=== PATIENT | female | born 1965 | race Caucasian/White ===

== ENCOUNTER 2017-06-23 18:38 | Observation (INO) | payer MEDICAID ==
[2017-06-23] MEDS ORDERED: ASPIRIN 81 MG PO STA (19:16)
[2017-06-23] MEDS ORDERED: RX INFO: IV CONTRAST WAS GIVEN 1 EACH MISC MISCELLANE PRN (19:17)
--- NOTE | 2017-06-23 19:23 | ED ---
Chest Pain HPI - General Chief Complaint: Chest Pain Stated Complaint: pressure in chest going though the back Time Seen by Provider: 06/23/17 19:16 Source: patient, RN notes reviewed Mode of arrival: wheelchair Limitations: no limitations - History of Present Illness Initial Comments: 51-year-old female presents emergency Department with chief complaint of chest pain, back pain. She states the symptoms have been present for last week or not getting better states slightly worse. She states that she initially thought it was just anxiety but she took some Xanax with no relief. Patient states she had a stress test proximal 6 years ago because she was having ongoing chest pain which shows normal at that time. At that point they determined that she had anxiety. Patient denies history of hypertension, hyperlipidemia, or diabetes. Patient is a nonsmoker. Patient states nothing makes symptoms feel better or worse. Denies any associated diaphoretic episodes , paresthesias, nausea, vomiting. - Related Data Home Medications Medication Instructions Recorded Confirmed Rizatriptan Benzoate [Maxalt] 10 mg PO DAILY PRN 05/03/14 06/23/17 Butalb/APAP/Caff 50-325-40Mg 1 tab PO DAILY PRN 12/01/14 06/23/17 [Fioricet 50-325-40] ALPRAZolam [Xanax] 0.25 mg PO DAILY PRN 06/23/17 06/23/17 Cyanocobalamin [Vitamin B-12 1,000 mcg SQ WE 06/23/17 06/23/17 Injection] Ergocalciferol [Vitamin D2] 50,000 unit PO WE 06/23/17 06/23/17 Pantoprazole Sodium [Protonix] 40 mg PO DAILY 06/23/17 06/23/17 Allergies Allergy/AdvReac Type Severity Reaction Status Date / Time No Known Allergies Allergy Verified 06/23/17 19:42 Review of Systems ROS Statement: Those systems with pertinent positive or pertinent negative responses have been documented in the HPI. ROS Other: All systems not noted in ROS Statement are negative. EKG Findings - EKG Comments: EKG Findings:: EKG performed at 18:57 sinus bradycardia with a rate of 59 MS 132 QRS 78 QT/QTC 432/427 Past Medical History Past Medical History: GERD/Reflux Additional Past Medical History / Comment(s): MIGRAINES.HEART MURMUR History of Any Multi-Drug Resistant Organisms: None Reported Past Surgical History: Hysterectomy Additional Past Surgical History / Comment(s): GASTRIC BYPASS Past Anesthesia/Blood Transfusion Reactions: No Reported Reaction Past Psychological History: Anxiety Smoking Status: Never smoker Past Alcohol Use History: None Reported Past Drug Use History: None Reported General Exam Limitations: no limitations General appearance: alert, in no apparent distress Head exam: Present: atraumatic, normocephalic, normal inspection Eye exam: Present: normal appearance, PERRL, EOMI. Absent: scleral icterus, conjunctival injection, periorbital swelling ENT exam: Present: normal exam, normal oropharynx, mucous membranes moist Neck exam: Present: normal inspection, full ROM. Absent: tenderness, meningismus, lymphadenopathy Respiratory exam: Present: normal lung sounds bilaterally. Absent: respiratory distress, wheezes, rales, rhonchi, stridor Cardiovascular Exam: Present: regular rate, normal rhythm, normal heart sounds. Absent: systolic murmur, diastolic murmur, rubs, gallop, clicks GI/Abdominal exam: Present: soft, normal bowel sounds. Absent: distended, tenderness, guarding, rebound, rigid Neurological exam: Present: alert, oriented X3, CN II-XII intact. Absent: motor sensory deficit Course Vital Signs 06/23/17 18:46 Temperature 98.0 F Pulse Rate 69 Respiratory 20 Rate Blood Pressure 142/78 O2 Sat by Pulse 99 Oximetry Disposition Clinical Impression: Chest pain, Back pain Disposition: ADMITTED IP TO THIS HOSP Condition: Stable Referrals: Zak Daniels DO [Primary Care Provider] - 1-2 days
[2017-06-23 19:42] LABS: Basophils # (A) 0.1 k/uL (0-0.2); Basophils % (A) 1 %; Eosinophils # (A) 0.1 k/uL (0-0.7); Eosinophils % (A) 2 %; HCT 35.6 % (34.0-46.0); HGB 11.7 gm/dL (11.4-16.0); Lymphocytes # (A) 3.2 k/uL (1.0-4.8); Lymphocytes % (A) 43 %; MCHC 32.9 g/dL (31.0-37.0); MCV 88.2 fL (80.0-100.0); Mean Platelet Volume 6.9; Monocytes # (A) 0.5 k/uL (0-1.0); Monocytes % (A) 7 %; Neutrophils # (A) 3.4 k/uL (1.3-7.7); Neutrophils % (A) 45 %; Platelet Count 267 k/uL (150-450); RBC 4.04 m/uL (3.80-5.40); RDW 12.7 % (11.5-15.5); WBC 7.5 k/uL (3.8-10.6)
[2017-06-23 19:46] LABS: Partial Thromboplastin Time 23.6 sec (22.0-30.0); Prothrombin Time 9.7 sec (9.0-12.0)
[2017-06-23 19:52] LABS: ALT 30 U/L (9-52); AST 21 U/L (14-36); Alkaline Phosphatase 75 U/L (38-126); Anion Gap 9 mmol/L; Blood Urea Nitrogen 10 mg/dL (7-17); Calcium 9.1 mg/dL (8.4-10.2); Carbon Dioxide 27 mmol/L (22-30); Chloride 102 mmol/L (98-107); Creatine Kinase 92 U/L (30-135); Glucose 95 mg/dL (74-99); Lipase 103 U/L (23-300); Magnesium 2.1 mg/dL (1.6-2.3); Potassium 4.4 mmol/L (3.5-5.1); Sodium 138 mmol/L (137-145); Total Bilirubin 0.2 mg/dL (0.2-1.3); Total Protein 6.7 g/dL (6.3-8.2)
[2017-06-23 20:04] LABS: Creatine Kinase MB 0.4 ng/mL (0.0-2.4); Troponin I <0.012 ng/mL (0.000-0.034)
--- NOTE | 2017-06-23 20:05 | XR ---
EXAMINATION: XR chest 2V DATE AND TIME: 06/23/2017 7:34 PM ORDERING PROVIDER: Zak Sandoval CLINICAL INDICATION: Chest Pain TECHNIQUE: PA and lateral COMPARISON: None. DESCRIPTION: The lungs are clear. The pleural spaces are negative. The cardiac silhouette is not enlarged. The mediastinal and pleural silhouettes are unremarkable. The skeletal structures are intact without focal findings. The soft tissues are unremarkable. IMPRESSION: NO ACUTE PROCESS.
--- NOTE | 2017-06-23 21:41 | CT ---
EXAMINATION TYPE: CT angio chest with contrast and with 3-D renderings DATE OF EXAM: 06/23/2017 8:38 PM COMPARISON: NONE HISTORY: Chest pressure CT DLP: 406.2 mGycm Automated exposure control for dose reduction was used. DLP 406 mGy-cm CONTRAST: CTA scan of the thorax is performed with IV Contrast, patient injected with 70 mL of Omnipa que 350, pulmonary embolism protocol. Multiple 3-D renderings were obtained.. FINDINGS: LUNGS: The lungs are grossly clear, there is no concerning parenchymal mass or nodule identified. T here is no pleural effusion or pneumothorax seen. The tracheobronchial tree is patent. MEDIASTINUM: There is satisfactory enhancement of the pulmonary artery and its branches, there is no CT evidence for pulmonary embolism. There are no greater than 1 cm hilar or mediastinal lymph nodes. There is no cardiomegaly. No pericardial effusion is seen. OTHER: No additional significant abnormality is seen. IMPRESSION: NO ACUTE PROCESS.
[2017-06-23] MEDS ORDERED: HEPARIN SODIUM,PORCINE 5,000 UNIT/ML 1 ML VIAL IV ONE (21:52)
[2017-06-23] MEDS ORDERED: NITROGLYCERIN SL TABS 0.4 MG TAB SUBLINGUAL PRN (21:52)
[2017-06-23] MEDS ORDERED: HEPARIN SOD,PORK IN 0.45% NACL 25,000 UNIT in 0.45% NACL 1 500ML.BAG IV SCH (22:00)
[2017-06-23 22:57] VITALS: BMI 29.7
[2017-06-24] MEDS ORDERED: BUTALB/APAP/CAFF 50-325-40MG TAB PO PRN (00:42)
[2017-06-24] MEDS ORDERED: SUMAtriptan SUCCINATE 50 MG TAB PO PRN (00:42)
[2017-06-24] MEDS ORDERED: ALPRAZolam 0.25 MG TAB PO PRN (00:42)
[2017-06-24] MEDS ORDERED: ERGOCALCIFEROL 50,000 UNIT CAP PO SCH ×2 (00:45→09:00)
[2017-06-24 02:07] LABS: Creatine Kinase 84 U/L (30-135)
[2017-06-24 02:21] LABS: Creatine Kinase MB 0.4 ng/mL (0.0-2.4); Troponin I <0.012 ng/mL (0.000-0.034)
--- NOTE | 2017-06-24 03:48 | HP ---
HISTORY AND PHYSICAL CHIEF COMPLAINT: Chest pain. HISTORY OF PRESENT ILLNESS: This 51-year-old woman with a past medical history of multiple medical problems including GERD, migraine, history of cholecystectomy, history of gastric bypass, being followed by Dr. Daniels in the outpatient setting, was complaining of chest pains for the last 1 week. The patient had a pressure type of sensation in the anterior part of the chest, which was not going away and the pain was radiated to the back today and the patient was concerned and the patient came to [facility] and was admitted for further evaluation and treatment. The patient had some anxiety attack also. The patient took some Xanax, but no relief was noted. The patient apparently had a stress test about 6 years ago which was normal at that time. No results available at this time. The patient also reports significant stress also. There is no history of fever, rigors. No history of headache, loss consciousness or seizures at this time. PAST MEDICAL HISTORY: History of GERD, history of migraines, cholecystectomy, tonsillectomy, history of anxiety, history gastric bypass. MEDICATIONS: Prior to admission include home medications are: 1. Maxalt 10 mg daily p.r.n. 2. Fioricet 1 tab daily p.r.n. 3. Xanax 0.5 daily p.r.n. 4. Protonix 40 mg. 5. D2 50,000 p.o. 6. Vitamin B12 1000 mcg subcu Thursday. ALLERGIES: None. FAMILY HISTORY: History of coronary artery disease in the family. SOCIAL HISTORY: No history of smoking. No history of alcohol intake. REVIEW OF SYSTEMS: ENT: No diminished hearing or vision. CARDIOVASCULAR: As mentioned. Respiration: As mentioned earlier. GI no nausea. no dysuria. Central nervous system: No numbness or weakness. ALLERGY/IMMUNOLOGY: No asthma or hayfever. Musculoskeletal: As mentioned earlier. HEMATOLOGY/ONCOLOGY: No history of anemia. Endocrine: No history of diabetes or hypothyroidism. Constitutional: As mentioned earlier. Dermatology negative. Rheumatology negative. Psychiatric: As mentioned earlier. PHYSICAL EXAMINATION: Pulse 91, blood pressure is 120/70, respiration 15, temperature 98.2, pulse ox 91% on room air. HEENT is conjunctivae normal. Oral mucosa moist. Neck is no jugular venous distention. No carotid bruit. No lymph node enlargement. Cardiovascular: S1, S2. Respiratory: Breath sounds diminished in the bases. No rhonchi. No crackles. ABDOMEN: Soft, nontender. No mass palpable. Legs no edema and no swelling. NERVOUS SYSTEM: Higher functions as mentioned earlier. Moves all four limbs. No focal deficits. Lymphatics: No lymph nodes palpable in the neck, axillae or groin. Skin no ulcer, rash or bleeding. LABS: CBC BMP within normal limits and the EKG which was done in the ER showed sinus bradycardia at [address]-T changes. ASSESSMENT: 1. Chest pain possible unstable angina. 2. History of gastroesophageal reflux disease. 3. History of migraine. 4. History of cholecystectomy. 5. History of gastric bypass. 6. History of anxiety. RECOMMENDATIONS AND DISCUSSION: In this 51-year-old woman who presented with multiple complex medical issues, we will monitor the patient closely, continue the current management. Continue symptomatic treatment. I would recommend resume the home medications. I would also recommend unstable angina protocol. Cardiology consultation. Otherwise, we will continue to monitor. I would also recommend resume the home medications and I would also recommend repeat labs and as well as a D-dimer also. We will monitor more closely monitor with Cardiology. Guarded prognosis because of multiple complex medical issues. Further recommendations to follow. Copy of dictation being forwarded to Dr. Daniels who is the primary physician. GILSON / BO: [id number] /
[2017-06-24] MEDS ORDERED: PANTOPRAZOLE 40 MG TABLET PO SCH (07:30)
[2017-06-24 08:16] LABS: Creatine Kinase 77 U/L (30-135)
[2017-06-24 08:21] LABS: Cholesterol 164 mg/dL (<200); HDL Cholesterol 69 mg/dL (40-60); LDL Cholesterol,Calculated 85 mg/dL (0-99); Triglycerides 49 mg/dL (<150)
[2017-06-24 08:22] VITALS: RESP 18
[2017-06-24 08:28] LABS: Creatine Kinase MB 0.3 ng/mL (0.0-2.4); Troponin I <0.012 ng/mL (0.000-0.034)
[2017-06-24] MEDS ORDERED: ASPIRIN 325 MG TAB PO SCH (09:00)
--- NOTE | 2017-06-24 11:09 | P.CRDCN ---
History of Present Illness Consult date: 06/24/17 History of present illness: This is a 51-year-old female with history of GERD syndrome, migraine and also of previous gastric bypass surgery who comes here for evaluation of symptoms of chest tightness and anxiety. She claims that she usually and anxious portion and has intermittent anxiety episodes. However, over the last several days patient has been having this tightness across the chest going to the back. It feels like anxiety, but she was not sure. Denied any nausea, vomiting, sweating. Doesn't seem to be exertional in nature. EKGs are negative and cardiac enzymes are negative. Her symptoms appear to be atypical. She is being scheduled for stress echo. If that is negative patient could be discharged home Past Medical History Past Medical History: GERD/Reflux Additional Past Medical History / Comment(s): MIGRAINES.HEART MURMUR History of Any Multi-Drug Resistant Organisms: None Reported Past Surgical History: Cholecystectomy, Hysterectomy, Tonsillectomy Additional Past Surgical History / Comment(s): GASTRIC BYPASS Past Anesthesia/Blood Transfusion Reactions: No Reported Reaction Past Psychological History: Anxiety Smoking Status: Never smoker Past Alcohol Use History: None Reported Past Drug Use History: None Reported - Past Family History Father Family Medical History: Coronary Artery Disease (CAD) Mother Family Medical History: Coronary Artery Disease (CAD) Additional Family Medical History / Comment(s): passed at 71 Medications and Allergies Home Medications Medication Instructions Recorded Confirmed Type Rizatriptan Benzoate [Maxalt] 10 mg PO DAILY PRN 05/03/14 06/23/17 History Butalb/APAP/Caff 50-325-40Mg 1 tab PO DAILY PRN 12/01/14 06/23/17 History [Fioricet 50-325-40] ALPRAZolam [Xanax] 0.25 mg PO DAILY PRN 06/23/17 06/23/17 History Cyanocobalamin [Vitamin B-12 1,000 mcg SQ WE 06/23/17 06/23/17 History Injection] Ergocalciferol [Vitamin D2] 50,000 unit PO WE 06/23/17 06/23/17 History Pantoprazole Sodium [Protonix] 40 mg PO DAILY 06/23/17 06/23/17 History Allergies Allergy/AdvReac Type Severity Reaction Status Date / Time No Known Allergies Allergy Verified 06/23/17 19:42 Physical Exam Vitals: Vital Signs Temp Pulse Pulse Resp BP BP Pulse Ox 06/24/17 08:00 97.9 F 66 18 105/59 99 06/24/17 04:00 97.9 F 58 L 17 119/69 96 06/24/17 00:03 98.2 F 91 15 127/73 91 L 06/23/17 23:10 81 16 06/23/17 22:43 97.6 F 76 16 139/78 97 06/23/17 21:57 97.9 F 66 16 114/83 96 06/23/17 18:46 98.0 F 69 20 142/78 99 Intake and Output 06/23/17 06/24/17 06/24/17 22:59 06:59 14:59 Intake Total 126.937 Balance 126.937 Intake: Intake, IV Titration 126.937 Amount Heparin Sod,Pork in 0.45% 126.937 NaCl 25,000 unit In 0.45 % NaCl 1 500ml.bag @ 11.6 UNITS/KG/HR 19.99 mls/hr IV .Q24H [facility] Rx#: [id number] Other: Voiding Method Toilet Toilet # Voids 1 2 Weight 89.8 kg 89.8 kg GENERAL EXAM: Patient is alert and oriented and doesn't appear to be in any acute distress HEENT: Normocephalic. Normal reaction of pupils, equal size, normal range of extraocular motion. No erythema or exudates in the throat. NECK: No masses, no nuchal rigidity. CHEST: No chest wall deformity. LUNGS: Equal air entry with no crackles or wheeze. HEART: S1 and S2 normal with no audible mumurs or gallops. Regular rhythm, femorals equal on both sides.. ABDOMEN: No hepatosplenomegaly, normal bowel sounds, no guarding or rigidity. SKIN: No rashes CENTRAL NERVOUS SYSTEM: No focal deficits. EXTREMITIES: No cyanosis, clubbing or edema. Results 06/23/17 19:26 06/23/17 19:26 Cardiac Enzymes 06/23/17 06/23/17 06/24/17 Range/Units 19:26 19:26 01:02 AST 21 (14-36) U/L CK-MB (CK-2) 0.4 0.4 (0.0-2.4) ng/mL Troponin I <0.012 <0.012 (0.000-0.034) ng/mL 06/24/17 Range/Units 07:00 AST (14-36) U/L CK-MB (CK-2) 0.3 (0.0-2.4) ng/mL Troponin I <0.012 (0.000-0.034) ng/mL Coagulation 06/23/17 06/24/17 Range/Units 19:26 03:29 PT 9.7 (9.0-12.0) sec APTT 23.6 36.9 H (22.0-30.0) sec Lipids 06/24/17 Range/Units 07:00 Triglycerides 49 (<150) mg/dL Cholesterol 164 (<200) mg/dL HDL Cholesterol 69 H (40-60) mg/dL CBC 06/23/17 Range/Units 19:26 WBC 7.5 (3.8-10.6) k/uL RBC 4.04 (3.80-5.40) m/uL Hgb 11.7 (11.4-16.0) gm/dL Hct 35.6 (34.0-46.0) % Plt Count 267 (150-450) k/uL Comprehensive Metabolic Panel 06/23/17 Range/Units 19:26 Sodium 138 (137-145) mmol/L Potassium 4.4 (3.5-5.1) mmol/L Chloride 102 (98-107) mmol/L Carbon Dioxide 27 (22-30) mmol/L BUN 10 (7-17) mg/dL Creatinine 0.64 (0.52-1.04) mg/dL Glucose 95 (74-99) mg/dL Calcium 9.1 (8.4-10.2) mg/dL AST 21 (14-36) U/L ALT 30 (9-52) U/L Alkaline Phosphatase 75 (38-126) U/L Total Protein 6.7 (6.3-8.2) g/dL Albumin 4.0 (3.5-5.0) g/dL Current Medications Generic Name Dose Route Start Last Admin Trade Name Freq PRN Reason Stop Dose Admin Acetaminophen/Butalbital/Caffeine 1 each 06/24/17 00:42 Fioricet 50-325-40 PO DAILY PRN Headache Alprazolam 0.25 mg 06/24/17 00:42 Xanax PO DAILY PRN Anxiety Aspirin 325 mg 06/24/17 09:00 Aspirin PO DAILY [facility] Ergocalciferol 50,000 unit 06/24/17 09:00 Vitamin D2 PO We@0900 [facility] Heparin Sodium/Sodium Chloride 500 mls @ 19.99 mls/hr 06/23/17 22:00 04:34 25,000 unit/ Sodium Chloride IV 13.63 units/kg/hr .Q24H [facility] 23.5 mls/hr Protocol Titration 11.6 UNITS/KG/HR Miscellaneous Information 1 each 06/23/17 19:17 06/23/17 19:39 Rx Info: Iv Contrast Was Given MISCELLANE 06/25/17 19:17 1 each DAILY PRN Administration Per Protocol Nitroglycerin 0.4 mg 06/23/17 21:52 Nitrostat SUBLINGUAL Q5M PRN Chest Pain Pantoprazole Sodium 40 mg 06/24/17 07:30 Protonix PO AC-BRKFST [facility] Sumatriptan Succinate 100 mg 06/24/17 00:42 Imitrex PO DAILY PRN Migraine Headache Intake and Output 06/23/17 06/24/17 06/24/17 22:59 06:59 14:59 Intake Total 126.937 Balance 126.937 Intake: Intake, IV Titration 126.937 Amount Heparin Sod,Pork in 0.45% 126.937 NaCl 25,000 unit In 0.45 % NaCl 1 500ml.bag @ 11.6 UNITS/KG/HR 19.99 mls/hr IV .Q24H [facility] Rx#: [id number] Other: Voiding Method Toilet Toilet # Voids 1 2 Weight 89.8 kg 89.8 kg 06/23/17 19:26 06/23/17 19:26 EKG Interpretations (text) Sinus rhythm Assessment and Plan (1) Anxiety Current Visit: Yes Status: Acute Code(s): F41.9 - ANXIETY DISORDER, UNSPECIFIED SNOMED Code(s): 00699563 (2) Chest pain Current Visit: Yes Status: Acute Code(s): R07.9 - CHEST PAIN, UNSPECIFIED SNOMED Code(s): 32231813 Plan: Procedure with a stress echo. If negative patient could be discharged home
[2017-06-24 11:58] VITALS: BP 119/66; PULSE 65; TEMP 98
--- NOTE | 2017-06-24 15:43 | P.STRESS ---
- Stress Test Note Stress Test Results/Findings: Exam Performed: stress echo exercise Exam Date: 06/24/17 Reason for Exam: chest pain Height: 5 ft 7 in Weight: 89.8 kg Protocol: vickey Stage: 3 Duration of Exercise: 9:00 Resting Heart Rate: 85 Resting Blood Pressure: 145/58 Maximum Achieved Heart Rate: 158 Maximum Achieved Blood Pressure: 160/79 85% PMHR: 142 100% PMHR: 167 METS: 10.3 Technologist Comment: Stress Test Results/Findings: This is a 51-year-old female being evaluated for symptoms chest pain and shortness of breath. There is family history of ischemic heart disease. Baseline EKG showed sinus rhythm with normal RI interval and QRS duration. Patient walked on the Vickey protocol for 9 minutes achieving a maximum heart rate of 158 with a blood pressure 116/79. Baseline EKG showed sinus rhythm with normal RI interval and QRS duration. EKGs taken during and after the exercise did not reveal any significant changes from the baseline. Patient did not experience any chest pain. Echo data: Baseline echo images showed normal wall motion and thickening. Exercise echo images showed augmentation of wall motion and thickening in all the segments. Final impression: #1. Negative stress test #2. Negative stress echo.
--- NOTE | 2017-06-24 17:43 | DS ---
DISCHARGE SUMMARY DATE OF SERVICE: 06/24/2017 FINAL DIAGNOSES: 1. Chest pain possibly musculoskeletal. Negative stress test myocardial infarction ruled out. 2. History of gastroesophageal reflux disease. 3. History of migraines. 4. History of cholecystectomy. 5. History of gastric bypass. 6. History of anxiety disorder. DISCHARGE DISPOSITION: The patient is being discharged in stable condition with guarded prognosis. HISTORY OF PRESENT ILLNESS: This 51-year-old with a past medical history of multiple medical problems, admitted with chest pain, myocardial infarction was ruled out and cardiology saw the patient. Stress test was negative and the patient is being discharged in stable condition with guarded prognosis. DISCHARGE ADVICE AND MEDICATIONS: 1. Diet is cardiac diet. 2. Activity limited until followup. 3. Follow up with Dr. Daniels in 2-3 days. 4. Follow up with municipal bond trader as recommend. MEDICATIONS: 1. Xanax 0.5 daily. 2. Butalbital 1 tab p.o. daily. 3. Vitamin B12 1000 mcg p.o. daily. 4. Vitamin D2 50,000. 5. Protonix 40 mg daily. 6. Maxalt 10 mg daily p.r.n. Once again, the patient is being discharged in stable condition with guarded prognosis. MMODL / IJN: [id number] /
--- NOTE | 2017-06-30 10:36 | ECHOS ---
- Stress Test Note Stress Test Results/Findings: Exam Performed: stress echo exercise Exam Date: 06/24/17 Reason for Exam: chest pain Height: 5 ft 7 in Weight: 89.8 kg Protocol: vickey Stage: 3 Duration of Exercise: 9:00 Resting Heart Rate: 85 Resting Blood Pressure: 145/58 Maximum Achieved Heart Rate: 158 Maximum Achieved Blood Pressure: 160/79 85% PMHR: 142 100% PMHR: 167 METS: 10.3 Technologist Comment: Stress Test Results/Findings: This is a 51-year-old female being evaluated for symptoms chest pain and shortness of breath. There is family history of ischemic heart disease. Baseline EKG showed sinus rhythm with normal CA interval and QRS duration. Patient walked on the Vickey protocol for 9 minutes achieving a maximum heart rate of 158 with a blood pressure 116/79. Baseline EKG showed sinus rhythm with normal CA interval and QRS duration. EKGs taken during and after the exercise did not reveal any significant changes from the baseline. Patient did not experience any chest pain. Echo data: Baseline echo images showed normal wall motion and thickening. Exercise echo images showed augmentation of wall motion and thickening in all the segments. Final impression: #1. Negative stress test #2. Negative stress echo. ALMA
== END 2017-06-24 16:58 | disposition home or self-care (01) ==
LOC: EC 18:38 → 3OBS 21:58
PROVIDERS: ADMIT Hospitalist; ATTEND Hospitalist
DX: R07.89 Other chest pain (principal); F41.9 Anxiety disorder, unspecified; G43.909 Migraine, unspecified, not intractable, without status migrainosus; K21.9 Gastro-esophageal reflux disease without esophagitis; Z98.84 Bariatric surgery status; Z90.49 Acquired absence of other specified parts of digestive tract; Z79.899 Other long term (current) drug therapy; Z86.79 Personal history of other diseases of the circulatory system; Z82.49 Family history of ischemic heart disease and other diseases of the circulatory system
CPT/HCPCS: 99285 ×2; 96365 ×2; 96376 ×2; 96366 ×2; 36415; 93005; 93017; 93350; 85379; 83880; 80061; 80053; 82550 ×2; 82553 ×2; 83690; 83735; 84484 ×2; 85025; 85610; 85730 ×2; 71046; 71275; G0378 ×2; J1644 ×2; Q9967

== ENCOUNTER → 2018-08-13 | Outpatient (CLI) | payer MEDICAID ==
--- NOTE | 2018-08-16 17:11 | BD ---
EXAMINATION TYPE: Axial Bone Density DATE OF EXAM: 08/13/2018 COMPARISON: NONE CLINICAL HISTORY: 52-year-old female disorder bone density, vitamin D deficiency Height: 65 Weight: 209.7 FRAX RISK QUESTIONS: Alcohol (3 or more units per day): no Family History (Parent hip fracture): no Glucocorticoids (More than 3mos): no (Ex: prednisone, prednisolone, methylprednisolone, dexamethasone, and hydrocortisone). History of Fracture in Adulthood: no Secondary Osteoporosis: 1. Type 1 Diabetes: no 2. Hyperthyroidism: no 3. Menopause before 45: no 4. Malnutrition: no 5. Chronic liver disease: no Rheumatoid Arthritis: no Current Tobacco Use: no RISK FACTORS HISTORY OF: Family History of Osteoporosis: no Active: yes Diet low in dairy products/other sources of calcium: no Postmenopausal woman: age 45 MEDICATIONS: vit d injections, vit d, Protonix Additional History: EXAM MEASUREMENTS: Bone mineral densitometry was performed using the [employer] System. Bone mineral density as measured about the Lumbar spine is: ----- L1-L4(G/cm2): 0.922 T Score Values are as follows: ----- L2: -2.6 ----- L3: -1.4 ----- L4: -2.3 ----- L1-L4: -2.2 Bone mineral density has: decreased -1.5 % since study of: 03.08.2014 Bone mineral density about the R hip (g/cm2): 0.732 Bone mineral density about the L hip (g/cm2): 0.770 T Score values are as follows: -----R Neck: -2.2 -----L Neck: -1.9 -----R Total: -1.2 -----L Total: -0.9 Bone mineral density has: increased 2.3 % since study of: 03.08.2014 IMPRESSION: Osteopenia (T Score between -2.5 and -1). There is slightly increased risk of fracture and the patient may be considered for treatment. Re-Screen 2-5 years. NOTE: T-SCORE=SD OF THE YOUNG ADULT MEAN.
--- NOTE | 2018-08-17 07:32 | MM ---
Reason for exam: screening (asymptomatic). Last mammogram was performed 4 years and 5 months ago. History: Patient is postmenopausal. 2 benign excisional biopsies of the right breast. Taking estrogen for 7 years. Physical Findings: A clinical breast exam by your physician is recommended on an annual basis and results should be correlated with mammographic findings. MG 3D Screening Mammo W/Cad Bilateral CC and MLO view(s) were taken. Prior study comparison: March 08, 2014, bilateral MG diagnostic mammo w CAD DEJAN. There are scattered fibroglandular densities. No suspicious abnormality. No significant changes when compared with prior studies. ASSESSMENT: Negative, BI-RAD 1 RECOMMENDATION: Routine screening mammogram of both breasts in 1 year.
== END | disposition home or self-care (01) ==
LOC: RADMAMWWP 07:06
PROVIDERS: ATTEND Family Medicine
DX: M85.80 Other specified disorders of bone density and structure, unspecified site (principal); E55.9 Vitamin D deficiency, unspecified
CPT/HCPCS: 77063; 77067; 77080

== ENCOUNTER → 2020-05-29 | Outpatient (CLI) | payer MEDICAID ==
--- NOTE | 2020-05-29 09:48 | XR ---
EXAMINATION TYPE: XR cervical spine comp DATE OF EXAM: 05/29/2020 COMPARISON: NONE HISTORY: CERVICALGIA TECHNIQUE: Four views are submitted. FINDINGS: The odontoid is intact. There are no compression deformities. The prevertebral soft tissue structur es are within normal limits. Diffuse osteopenia. Mild hypertrophic change C5-6. Well-corticated soft tissue ossification posterior to the spinous processes of the lower cervical spine. Neural foramina appear to be patent. IMPRESSION: 1. Mild hypertrophic change with degenerative disc disease C5-C6. If there is concern for disc hernia tion correlate with MRI.
== END | disposition home or self-care (01) ==
LOC: RADXRYALE 09:03
PROVIDERS: ATTEND Physician Assistant Medical
DX: M50.322 Other cervical disc degeneration at C5-C6 level (principal); M89.38 Hypertrophy of bone, other site
CPT/HCPCS: 72050

== ENCOUNTER → 2020-06-07 | Outpatient (CLI) | payer MEDICAID ==
--- NOTE | 2020-06-07 10:42 | CT ---
EXAMINATION TYPE: CT brain wo con DATE OF EXAM: 06/07/2020 COMPARISON: None HISTORY: Headache CT DLP: 995.[address] of the brain was performed. The ventricles, basal cisterns and sulci overlying the cerebral convexities demonstrate mild enlargem ent. There is no evidence for intracranial hemorrhage or sulcal effacement. There is decreased attenuation about the periventricular white matter and deep white matter of both c erebral hemispheres, compatible with chronic small vessel ischemia. Differential diagnosis does inclu de demyelination. No mass effects are seen.No midline shift. Osseous calvarium is intact. If symptoms persist consider MRI. IMPRESSION: 1. Age related atrophic and chronic small vessel ischemic change without acute intracranial process s een at this time.
== END | disposition home or self-care (01) ==
LOC: RADCTMAIN 09:56
PROVIDERS: ATTEND Physician Assistant Medical
DX: I67.82 Cerebral ischemia (principal); G31.1 Senile degeneration of brain, not elsewhere classified
CPT/HCPCS: 70450

== ENCOUNTER → 2020-06-12 | Outpatient (CLI) | payer MEDICAID ==
--- NOTE | 2020-06-13 00:48 | MR ---
EXAMINATION TYPE: MR cervical spine wo con DATE OF EXAM: 06/12/2020 COMPARISON: None HISTORY: Headaches, neck pain and numbness for 2 weeks. Multiplanar multiecho imaging of the cervical spine was performed without contrast. Cervical vertebra have normal alignment. There is mild posterior cervical disc herniation at C5-6 in the midline. There is developmentally large spinal canal and no spinal stenosis. Cervical spinal cord shows no edema. Spinal canal measures 12 mm at C5-6. I see no bony destructive process. Brainstem is intact. Posterior elements are intact. There is no evidence of cervical paraspinal mass. IMPRESSION: Mild posterior cervical disc herniation at C5-6. No spinal stenosis. No fracture.
== END | disposition home or self-care (01) ==
LOC: RADMRIMAIN 15:50
PROVIDERS: ATTEND Physician Assistant Medical
DX: M50.222 Other cervical disc displacement at C5-C6 level (principal)
CPT/HCPCS: 72141

== ENCOUNTER → 2020-06-15 | Outpatient (CLI) | payer MEDICAID ==
--- NOTE | 2020-06-16 11:58 | US ---
EXAMINATION TYPE: US carotid duplex BILAT DATE OF EXAM: 06/15/2020 COMPARISON: NONE CLINICAL HISTORY: R20.2 Paresthesia of skin, M50.33 cervical djd, R51.9. Face numbness headaches EXAM MEASUREMENTS: RIGHT: Peak Systolic Velocity (PSV) cm/sec ----- Right CCA: 64.8 ----- Right ICA: 96.8 ----- Right ECA: 67.7 ICA/CCA ratio: 1.5 RIGHT: End Diastole cm/sec ----- Right CCA: 19.8 ----- Right ICA: 38.7 ----- Right ECA: 14 LEFT: Peak Systolic Velocity (PSV) cm/sec ----- Left CCA: 70.6 ----- Left ICA: 91.0 ----- Left ECA: 75.0 ICA/CCA ratio: 1.3 LEFT: End Diastole cm/sec ----- Left CCA: 22.7 ----- Left ICA: 43.0 ----- Left ECA: 12.5 VERTEBRALS (direction of flow): Right Vertebral: Antegrade Left Vertebral: Antegrade Rhythm: Normal Grayscale images show no significant plaque. No elevated velocities IMPRESSION: No hemodynamically significant stenosis seen in either internal carotid artery . Criteria for Assigning % of Stenosis / Diameter reduction (Estimation based on the indirect measurements of the internal carotid artery velocities (ICA PSV). 1. Normal (no stenosis)=ICA PSV < 125 cm/s: ratio < 2.0: ICA EDV<40 cm/s. 2. Less than 50% stenosis=ICA PSV < 125 cm/s: ratio < 2.0: ICA EDV<40 cm/s. 3. 50 to 69% stenosis=ICA PSV of 125 to 230 cm/s: ration 2.0 ? 4.0: ICA EDV 40-100 cm/s. 4. Greater than 70% stenosis to near occlusion= ICA PSV > 230 cm/s: ratio > 4.0: ICA EDV > 100 cm/s. 5. Near occlusion= ICA PSV velocities may be low or undetectable: variable ratio and ICA EDV. 6. Total occlusion=unable to detect flow.
== END | disposition home or self-care (01) ==
LOC: RADUSWWP 16:34
PROVIDERS: ATTEND Family Medicine
DX: R20.2 Paresthesia of skin (principal); M50.33 Other cervical disc degeneration, cervicothoracic region; R51.9 Headache, unspecified
CPT/HCPCS: 93880

== ENCOUNTER → 2020-09-12 | Outpatient (CLI) | payer MEDICAID ==
[2020-09-12 09:59] VITALS: BP 116/77; PULSE 69; RESP 18; TEMP 97.5
--- NOTE | 2020-09-12 10:30 | P.PAINCN ---
History of Present Illness - Reason for Consult Consult date: 09/12/20 - History of Present Illness This is 54 years old female with 2-3 months history of pain and numbness and tingling sensation at the medial aspect of her right upper extremity, he denies any initiating event she denies any motor or sensory deficits, she tried physical therapy and pain medication without any significant improvement, symptoms associated with some headache, she denies any fever or night sweats she denies any change in the bowel movement or urination. Past Medical History Past Medical History: GERD/Reflux, Musculoskeletal Disorder Additional Past Medical History / Comment(s): MIGRAINES.HEART MURMUR, hypoglycemic, cervical herniated discs History of Any Multi-Drug Resistant Organisms: None Reported Past Surgical History: Bariatric Surgery, Cholecystectomy, Hysterectomy, Tonsillectomy Additional Past Surgical History / Comment(s): GASTRIC BYPASS, ovarian cysts r emoved, breast bx.'s Past Anesthesia/Blood Transfusion Reactions: Postoperative Nausea & Vomiting (PONV) Smoking Status: Never smoker - Past Family History Father Family Medical History: Coronary Artery Disease (CAD) Mother Family Medical History: Coronary Artery Disease (CAD) Additional Family Medical History / Comment(s): passed at 71 Medications and Allergies Home Medications Medication Instructions Recorded Confirmed Type Rizatriptan Benzoate [Maxalt] 10 mg PO DAILY PRN 05/03/14 09/12/20 History Butalb/APAP/Caff 50-325-40Mg 1 tab PO DAILY PRN 12/01/14 09/12/20 History [Fioricet 50-325-40] Cyanocobalamin [Vitamin B-12 1,000 mcg SQ WE 06/23/17 09/12/20 History Injection] Ergocalciferol [Vitamin D2 50,000 unit PO WE 06/23/17 09/12/20 History (DRISDOL)] Celecoxib [CeleBREX] 200 mg PO BID 09/10/20 09/12/20 History Multivit with Calcium,Iron,Min 1 each PO DAILY 09/10/20 09/12/20 History [Women's Multivitamin] Omeprazole [PriLOSEC] 20 mg PO AC-BRKFST 09/10/20 09/12/20 History Prochlorperazine [Compazine] 10 mg PO Q8H PRN 09/10/20 09/12/20 History Allergies Allergy/AdvReac Type Severity Reaction Status Date / Time No Known Allergies Allergy Verified 09/10/20 16:08 Physical Exam Vitals: Vital Signs Temp Pulse Resp BP Pulse Ox 09/12/20 09:54 97.5 F L 69 18 116/77 95 Physical Examinations : -Constitutiona : Cooperative , not in acute distress . -HEENT : nech : supple , no Lymphadenopathy , normal thyroid size . : eyes : no ptosis , no icterus, no photophobia . - neurologic : Cranial nerve II to XII intact , no focal neurological deffecit . -psychatric : alert , oriented X 3 , appropriate affect , intact judgment and insight . -Lymphatic : no Lymphadenopathy . - musculoskeltal : Cervical Spine motor stregnth in the deltoid and biceps, normal right side , normal Left side motor stregnth biceps and the wrist extensors normal right side ,normal left side . motor stregnth in the triceps muscle . normal Right side , normal Left side deep tendon reflexes normal at the biceps , normal at Brachioradialis , normal at triceps. cervical facet loading test: Positive Bilaterally Spurling test= positive Right , positive left. Neck distraction test= positive Right , positive left. Belia sign= positive right, positive left . Lumber spine moter stegnth lower extremities ,thigh and legs 5/5 Right side , 5/5 Left side Results Comments: MRI of the cervical spine= C5 6 disc herniation Assessment and Plan Plan: Assessment and plan=1-cervical herniated disc. she could benefit from cervical epidural steroid injection under fluoroscopy guidance at C6 7 levels ( right paramedial ) Time with Patient: Greater than 30 PQRS Measure Charge Sheet Measure #130: Documentation of Current Meds in Medical Chart: Patient's medications documented in chart Measure #226: Tobacco Use: Screen & Cessation Intervention: Pt not a tobacco user Measure #111: Pneumonia Vaccination: Pneumococcal vaccine NOT administered or previously given Measure #47: Advance Care Plan: Advance care planning discussed & documented, pt chose/unable to give Measure #412: Opioid Treatment Agreement: No documentation of signed opioid treatment agreement Measure #408: Opioid Therapy Follow-up Evaluation: Patient had NO f/u eval minimum every 3 months during opioid therapy Measure #317: Preventitive Care & Scrn High Bld Press & F/U: Normal blood pressure, f/u not required Measure #128: Body Mass Index (BMI) Screening & Follow-up: BMI documented ABOVE normal parameters - f/u documented Measure #131: Pain Assessment & Follow-up: Pain positive & plan documented, Follow-up scheduled Measure #431: Unhealthy Alcohol Use Preventative Care & Scrn: Patient not identified as an unhealthy alcohol user PQRS Narrative: Smoking Status Never smoker Blood Pressure 116/77 Pain Intensity [Neck] 3 Scale Used Numeric (1 - 10) Hx Alcohol Use (MH) Yes Home Medications: Ambulatory Orders Rizatriptan Benzoate [Maxalt] 10 mg PO DAILY PRN 05/03/14 Butalb/APAP/Caff 50-325-40Mg [Fioricet 50-325-40] 1 tab PO DAILY PRN 12/01/14 Cyanocobalamin [Vitamin B-12 Injection] 1,000 mcg SQ WE 06/23/17 Ergocalciferol [Vitamin D2 (DRISDOL)] 50,000 unit PO WE 06/23/17 Celecoxib [CeleBREX] 200 mg PO BID 09/10/20 Multivit with Calcium,Iron,Min [Women's Multivitamin] 1 each PO DAILY 09/10/20 Omeprazole [PriLOSEC] 20 mg PO AC-BRKFST 09/10/20 Prochlorperazine [Compazine] 10 mg PO Q8H PRN 09/10/20
== END ==
LOC: PNWHC3 09:44
PROVIDERS: ATTEND Specialist
DX: M50.20 Other cervical disc displacement, unspecified cervical region (principal); K21.9 Gastro-esophageal reflux disease without esophagitis
CPT/HCPCS: 99211

== ENCOUNTER 2020-10-02 08:59 | Day surgery (SDC) | payer MEDICAID ==
[2020-10-01 11:04] VITALS: BMI 32.3
[~2020-10-02 08:59] MED LIST: LACTATED RINGERS 1,000 ML IV SCH
[2020-10-02 09:43] VITALS: TEMP 97.3
[2020-10-02] MEDS ORDERED: DEXAMETHASONE SOD PHOSPHATE 10 MG/ML 1 ML VIAL ONE (09:57)
[2020-10-02] MEDS ORDERED: fentaNYL (PF) 50 MCG/ML 2 ML AMP ONE (09:57)
[2020-10-02] MEDS ORDERED: MIDAZOLAM 2 MG/2 ML VIAL ONE (09:57)
[2020-10-02] MEDS ORDERED: IOPAMIDOL M200 10 ML VIAL ONE (09:57)
[2020-10-02 10:00] LABS: Glucose,Whole Blood 107 mg/dL (75-99)
--- NOTE | 2020-10-02 10:14 | P.PCN ---
Date of Procedure: 10/02/20 Procedure(s) Performed: . PROCEDURE 1. Cervical epidural steroid injection under fluoroscopic guidance, C6-7 (fluoroscopy images available in the radiology department ) 2. Cervical epidurogram. PREOPERATIVE DIAGNOSIS: 1- Cervical herniated Disc Diseases. POSTOPERATIVE DIAGNOSIS: : 1- Cervical herniated Disc Diseases. ANESTHESIA: Local anesthesia with lidocaine 1 % , and moderate sedation, with Versed 2 mg and Fentanyl 50 mcg. EBL 0 PROCEDURE INDICATION: The patient with neck pain and radiculitis unresponsive to conservative treatment consents for procedure. PROCEDURE DESCRIPTION / TECHNIQUE: The patient was seen and identified in the preoperative area. Risks, benefits, complications, including but not limited to infections ,bleeding , allergic reactions to the medications ,and not complete pain releife, and alternatives were discussed with the patient, the patient agreed to proceed with the procedure and signed the consent. Patient was taken to the OR and time out was completed. The patient was placed in the prone position on the procedure table. A pillow was placed under the patients chest to increase the cervical interlaminar space. The cervical area was prepped and draped in the usual sterile fashion. Vital signs were closely monitored during the procedure. Conscious sedation was used during the procedure to decrease patients anxiety. Using anterior-posterior fluoroscopy, the C6-7 (Right paramedial ) interlaminar space was identified and the skin over this site was marked and then infiltrated with 1% lidocaine subcutaneously. Subsequently, a 20-gauge 3-1/2-inch Tuohy epidural needle was inserted and advanced toward the epidural space by means of the ``hanging-drop technique and guided by AP and lateral fluoroscopy. The correct needle position in the epidural space was verified with the injection of 2 mL of the water soluble contrast dye [id number]-200 and observing an excellent epidurogram with the epidural spread of the dye, after negative aspiration for blood and CSF and in the absence of paresthesias. then, mixture containing 20 mg Dexamethasone and 2 ml of preservative-free normal saline injected and a washout of epidurogram was seen. Needle was withdrawn intact, skin was cleansed, and bandages were applied. Complications= none. Disposition= patient was placed in supine position and transferred to the recovery room area in stable condition and there was no evidence of upper or lower extremity motor or sensory deficit after the procedure patient was discharged from recovery room after discharge criteria met and home discharge instructions was given by the staff and patient will follow with the pain clinic in 2-4 weeks
[2020-10-02] MEDS ORDERED: IV FLUID CONTINUATION 750 ML IV ONE (10:16)
[2020-10-02 10:23] VITALS: RESP 20
[2020-10-02 10:36] VITALS: BP 103/67; PULSE 62
--- NOTE | 2020-10-02 11:37 | FL ---
EXAMINATION TYPE: FL guided pain mgmt statistic DATE OF EXAM: 10/02/2020 HISTORY: Fluoroscopy time 2 seconds of fluoroscopy provided. IMPRESSION: 1. Fluoroscopy time.
== END 2020-10-02 10:47 | disposition home or self-care (01) ==
LOC: ORPAIN 08:59
PROVIDERS: ATTEND Specialist
DX: M50.10 Cervical disc disorder with radiculopathy, unspecified cervical region (principal); E16.2 Hypoglycemia, unspecified; Z90.710 Acquired absence of both cervix and uterus; Z88.5 Allergy status to narcotic agent
CPT/HCPCS: 62321; J2250; J1100; J3010; Q9966

== ENCOUNTER 2020-10-30 07:58 | Day surgery (SDC) | payer MEDICAID ==
[2020-10-29 10:22] VITALS: BMI 32.3
[2020-10-30 08:31] VITALS: TEMP 97.1
[2020-10-30] MEDS ORDERED: LACTATED RINGERS 1,000 ML IV ONE (08:40)
[2020-10-30] MEDS ORDERED: IOPAMIDOL M200 10 ML VIAL ONE (09:20)
[2020-10-30] MEDS ORDERED: MIDAZOLAM 2 MG/2 ML VIAL ONE (09:20)
[2020-10-30] MEDS ORDERED: DEXAMETHASONE SOD PHOSPHATE 10 MG/ML 1 ML VIAL ONE (09:20)
[2020-10-30] MEDS ORDERED: fentaNYL (PF) 50 MCG/ML 2 ML AMP ONE (09:20)
--- NOTE | 2020-10-30 09:30 | P.PCN ---
Date of Procedure: 10/30/20 Surgeon: Brenda Weaver Pathology: none sent Condition: stable Disposition: PACU Description of Procedure: PROCEDURE 1. Cervical epidural steroid injection under fluoroscopic guidance, C7-T1 Rt- paramedian approach. 2. Cervical epidurogram. : PREOPERATIVE DIAGNOSIS: Cervical radiculopathy, cervical spondylosis without myelopathy POSTOPERATIVE DIAGNOSIS: : Same as above ANESTHESIA: Local anesthesia with 1% lidocaine and IV moderate conscious sedation with Versed and Fentanyl . EBL 0 PROCEDURE INDICATION: The patient with neck pain and radiculopathy unresponsive to conservative treatment consents for procedure. PROCEDURE DESCRIPTION / TECHNIQUE: The patient was seen and identified in the preoperative area. Risks, benefits, complications, including but not limited to infections ,bleeding , allergic reactions to the medications ,and not complete pain relief, and alternatives were discussed with the patient, the patient agreed to proceed with the procedure and signed the consent. Patient was taken to the OR and time out was completed. The patient was placed in the prone position on the procedure table. A pillow was placed under the patients chest to increase the flexion of the cervical spine . The cervical area was prepped and draped in the usual sterile fashion. Vital signs were closely monitored during the procedure. Conscious sedation was used during the procedure to decrease patients anxiety. Using anterior-posterior fluoroscopy, the C7-T1 interlaminar space was identified and the skin over this site was marked and then infiltrated with 1% lidocaine subcutaneously. Subsequently, a 20-gauge 3-1/2-inch Tuohy epidural needle was inserted and advanced toward the epidural space by means of loss of resistance to air technique and guided by AP and lateral fluoroscopy. The needle tip contacted the lamina of T1 vertebra first, then it was walked off bone and into the epidural space using the loss of to air and fluoroscopic guidance to identify the epidural space. The correct needle position in the epidural space was verified with the injection of 1 mL of the water soluble contrast dye Isovue and observing an excellent epidurogram with the epidural spread of the dye, after negative aspiration for blood and CSF and in the absence of paresthesias. Again after negative aspiration, a 2 ml mixture containing 10 mg of Decadron and 1 ml of preservative free Normal Saline solution was injected and a washout of epidurogram was seen. Needle was withdrawn intact, skin was cleansed, and bandages were applied. A copy of the needle placement picture was saved to the fluoroscopy machine.
[2020-10-30] MEDS ORDERED: IV FLUID CONTINUATION 1,000 ML IV ONE (09:33)
[2020-10-30 09:39] VITALS: RESP 18
[2020-10-30 10:03] VITALS: BP 101/58; PULSE 60
--- NOTE | 2020-10-30 11:38 | FL ---
EXAMINATION TYPE: FL guided pain mgmt statistic DATE OF EXAM: 10/30/2020 CLINICAL HISTORY: Cervical epidural injection TECHNIQUE: Fluoroscopy. COMPARISON: None. FINDINGS: Fluoroscopic guidance was provided during procedure performed by Dr. Weaver. A total of 6 seconds of fluoroscopic time was utilized during the procedure and 1 spot images was acquired. IMPRESSION: As Above.
== END 2020-10-30 10:04 | disposition home or self-care (01) ==
LOC: ORPAIN 07:58
PROVIDERS: ATTEND Anesthesiology
DX: M47.22 Other spondylosis with radiculopathy, cervical region (principal); G43.909 Migraine, unspecified, not intractable, without status migrainosus; Z88.5 Allergy status to narcotic agent
CPT/HCPCS: 62321; J2250; J1100; J3010; Q9966

== ENCOUNTER → 2021-01-17 | Outpatient (CLI) | payer MEDICAID ==
--- NOTE | 2021-01-18 08:17 | XR ---
Right knee HISTORY: Pain 3 views the right knee No comparisons Bone mineralization, joint spaces and alignment are maintained. No evident joint effusion. IMPRESSION: Normal right knee.
== END | disposition home or self-care (01) ==
LOC: RADXRYALE 16:18
PROVIDERS: ATTEND Physician Assistant Medical
DX: M25.561 Pain in right knee (principal)

== ENCOUNTER → 2021-02-13 | Outpatient (CLI) | payer MEDICAID ==
[2021-02-13 09:37] VITALS: BP 126/88; PULSE 78; RESP 18; TEMP 97.8
--- NOTE | 2021-02-13 10:18 | P.PN ---
Subjective Progress Note Date: 02/13/21 Rukhsana is a 55-year-old female return to clinic for follow-up visit after her second cervical epidural injection. She reports reports significant relief from the procedure greater than 80% of her pain is gone. On the stinging sensation in her right hand is most relieved his to small sensation in her right little finger. She reports that her pain is worse with sitting, driving, and standing. Pain is decreased with rest, heat, and her medication. She reports that her pain on average is 4 out of 10 on a 0-to-10 scale. At worst her pain is 8 out of 10. Objective - Vital Signs Vital signs: Vital Signs Temp 97.8 F 02/13/21 09:32 Pulse 78 02/13/21 09:32 Resp 18 02/13/21 09:32 BP 126/88 02/13/21 09:32 Pulse Ox 98 02/13/21 09:32 - Exam Physical Examinations : -Constitutiona : Cooperative , not in acute distress . -HEENT : nech : supple , no Lymphadenopathy , normal thyroid size . : eyes : no ptosis , no icterus, no photophobia . - neurologic : Cranial nerve II to XII intact , no focal neurological deffecit . -psychatric : alert , oriented X 3 , appropriate affect , intact judgment and insight . -Lymphatic : no Lymphadenopathy . - musculoskeltal : Cervical Spine motor stregnth in the deltoid and biceps, normal right side , normal Left side motor stregnth biceps and the wrist extensors normal right side ,normal left side . motor stregnth in the triceps muscle . normal Right side , normal Left side deep tendon reflexes normal at the biceps , normal at Brachioradialis , normal at triceps. cervical facet loading test: Positive Bilaterally Spurling test= positive Right , positive left. Neck distraction test= positive Right , positive left. Belia sign= agonist Assessment and Plan Assessment: Assessment: Cervical radiculopathy; cervical spondylosis without myelopathy Plan: Repeat cervical epidural steroid injection at C7-T1 #3 - PQRS measures = - Patient's medications are documented in the chart. -Tobacco use is negative -Patient's has not received pneumococcal vaccine. -Advanced care planning discussed, patient not eligible. -Opiate contract not signed. -Pain positive and follow-up visit/procedure is scheduled. -Patient's blood pressure measured [126/88 ] , and documented in the record ,and patient will follow up with the primary care. -Patient's weight was measured and body mass index [ ] above the,within the normal limits and counseling was done. and patient instructed to follow-up with the primary care physician. -Patient was not identified as an unhealthy alcohol user Time with Patient: Less than 30
== END ==
LOC: PNWHC3 08:38
PROVIDERS: ATTEND Student in an Organized Health Care Education/Training Program
DX: M47.22 Other spondylosis with radiculopathy, cervical region (principal); Z88.5 Allergy status to narcotic agent
CPT/HCPCS: 99211

== ENCOUNTER 2021-03-28 08:44 | Day surgery (SDC) | payer MEDICAID ==
[2021-03-26 16:13] VITALS: BMI 33.0
[2021-03-28 09:04] VITALS: TEMP 97.8
[2021-03-28 09:14] LABS: Glucose,Whole Blood 91 mg/dL (75-99)
[2021-03-28] MEDS ORDERED: .fentaNYL (PF) 50 MCG/ML 2 ML AMP ONE (09:21)
[2021-03-28] MEDS ORDERED: DEXAMETHASONE SOD PHOSPHATE 10 MG/ML 1 ML VIAL ONE (09:21)
[2021-03-28] MEDS ORDERED: MIDAZOLAM 2 MG/2 ML VIAL ONE (09:21)
[2021-03-28] MEDS ORDERED: IOPAMIDOL M200 10 ML VIAL ONE (09:21)
--- NOTE | 2021-03-28 09:34 | P.PCN ---
Date of Procedure: 03/28/21 Procedure(s) Performed: PROCEDURE 1. Cervical epidural steroid injection under fluoroscopic guidance, C7-T1 (fluoroscopy images available in the radiology department ) 2. Cervical epidurogram. PREOPERATIVE DIAGNOSIS: 1- Cervical herniated Disc Diseases. 2-Cervical radiculopathy POSTOPERATIVE DIAGNOSIS: : 1- Cervical herniated Disc Diseases. 2-cervical radiculopathy ANESTHESIA: Local anesthesia with lidocaine 1 % , and moderate sedation, with Versed 2 mg and Fentanyl 100 mcg. EBL 0 PROCEDURE INDICATION: The patient with neck pain and radiculitis unresponsive to conservative treatment consents for procedure. PROCEDURE DESCRIPTION / TECHNIQUE: The patient was seen and identified in the preoperative area. Risks, benefits, complications, including but not limited to infections ,bleeding , allergic reactions to the medications ,and not complete pain releife, and alternatives were discussed with the patient, the patient agreed to proceed with the procedure and signed the consent. Patient was taken to the OR and time out was completed. The patient was placed in the prone position on the procedure table. A pillow was placed under the patients chest to increase the cervical interlaminar space. The cervical area was prepped and draped in the usual sterile fashion. Vital signs were closely monitored during the procedure. Conscious sedation was used during the procedure to decrease patients anxiety. Using anterior-posterior fluoroscopy, the C7-T1 (Left paramedial ) interlaminar space was identified and the skin over this site was marked and then infiltrated with 1% lidocaine subcutaneously. Subsequently, a 20-gauge 3-1/2-inch Tuohy epidural needle was inserted and advanced toward the epidural space by means of the ``hanging-drop technique and guided by AP and lateral fluoroscopy. The correct needle position in the epidural space was verified with the injection of 2 mL of the water soluble contrast dye Isovue-200 and observing an excellent epidurogram with the epidural spread of the dye, after negative aspiration for blood and CSF and in the absence of paresthesias. then, mixture containing 20 mg Dexamethasone and 2 ml of preservative-free normal saline injected and a washout of epidurogram was seen. Needle was withdrawn intact, skin was cleansed, and bandages were applied. Complications= none. Disposition= patient was placed in supine position and transferred to the recovery room area in stable condition and there was no evidence of upper or lower extremity motor or sensory deficit after the procedure patient was discharged from recovery room after discharge criteria met and home discharge instructions was given by the staff and patient will follow with the pain clinic in 2-4 weeks
[2021-03-28] MEDS ORDERED: IV FLUID CONTINUATION 1,000 ML IV ONE (09:35)
[2021-03-28 09:38] VITALS: RESP 16
[2021-03-28 09:52] VITALS: BP 117/64; PULSE 67
--- NOTE | 2021-03-28 10:23 | FL ---
EXAMINATION TYPE: FL guided pain mgmt statistic DATE OF EXAM: 03/28/2021 HISTORY: Fluoroscopy time 6 seconds of fluoroscopy provided. IMPRESSION: 1. Fluoroscopy time.
== END 2021-03-28 10:07 | disposition home or self-care (01) ==
LOC: ORPAIN 08:44
PROVIDERS: ATTEND Specialist
DX: M50.20 Other cervical disc displacement, unspecified cervical region (principal); M54.12 Radiculopathy, cervical region
CPT/HCPCS: 62321; 99152

== ENCOUNTER → 2021-09-26 | Outpatient (CLI) | payer MEDICAID ==
--- NOTE | 2021-09-27 02:14 | MR ---
EXAMINATION TYPE: MR knee RT wo con DATE OF EXAM: 09/26/2021 COMPARISON: None HISTORY: Rt knee inner and outer pain and swelling x1 year Multiplanar multiecho imaging of the right knee with no contrast. There is some mild subcutaneous edema around the knee. The anterior and posterior cruciate ligaments are intact. There is mild subchondral edema in the patella. No fracture line seen. The collateral ligaments appear intact. There is small knee joint effusion. The lateral meniscus appe ars intact. There is some horizontal and vertical tear in the posterior horn of the medial meniscus e xtending to the inferior surface. There is slight narrowing of the medial joint space.No significant spur formation. IMPRESSION: No evidence of ligamentous tear. There is a small vertical and horizontal tear of the posterior horn medial meniscus. Small joint effu malcolm. Moderate-sized area of edema in the patella consistent with a bone bruise and osteoarthritis and dege nerative cyst formation. Subcutaneous edema.
== END | disposition home or self-care (01) ==
LOC: RADMRIMAIN 16:24
PROVIDERS: ATTEND Orthopaedic Surgery Sports Medicine
DX: M23.321 Other meniscus derangements, posterior horn of medial meniscus, right knee (principal); M17.11 Unilateral primary osteoarthritis, right knee

== ENCOUNTER → 2021-11-06 | Outpatient (CLI) | payer MEDICAID ==
--- NOTE | 2021-11-06 12:17 | BD ---
EXAMINATION TYPE: Axial Bone Density DATE OF EXAM: 11/06/2021 COMPARISON: NONE CLINICAL HISTORY: 56 years year old Female. ICD-10 CODE: M84.80 OTHER DISORDERS OF CONTINU Height: 5 FT 5 IN Weight: 209 FRAX RISK QUESTIONS: Alcohol (3 or more units per day): NO Family History (Parent hip fracture): NO Glucocorticoids (More than 3mos): NO (Ex: prednisone, prednisolone, methylprednisolone, dexamethasone, and hydrocortisone). History of Fracture in Adulthood: NO Secondary Osteoporosis: 1. Type 1 Diabetes: NO 2. Hyperthyroidism: NO 3. Menopause before 45: NO 4. Malnutrition: NO 5. Chronic liver disease: NO Rheumatoid Arthritis: NO Current Tobacco Use: NO RISK FACTORS HISTORY OF: Surgery to Spine/Hip(right/left)/Wrist (right/left): NO Family History of Osteoporosis: NO Active: YES Diet low in dairy products/other sources of calcium: NO Postmenopausal woman: YES Take estrogen and/or progesterone medications: NOT NOW Lost more than 2 inches in height since high school: NO Frequent falls: NO Poor Health: GOOD Hyperparathyroidism: NO Adrenal Insufficiency: NO MEDICATIONS: Additional Medications: CELEBREX, COMPAZINE, MAXALT, FIORICET, VIT D ,PROTONIX Additional History: EXAM MEASUREMENTS: Bone mineral densitometry was performed using the [employer]. Bone mineral density as measured about the Lumbar spine is: ----- L1-L4(G/cm2): 0.912 T Score Values are as follows: ----- L1: -2.6 ----- L2: -2.3 ----- L3: -1.9 ----- L4: -2.3 ----- L1-L4: -2.2 Bone mineral density has: DECREASED -4.7 % since study of: 2013 Bone mineral density about the R hip (g/cm2): 0.773 Bone mineral density about the L hip (g/cm2): 0.776 T Score values are as follows: -----R Neck: -1.9 -----L Neck: -1.9 -----R Total: -1.4 -----L Total: -1.0 Bone mineral density has: DECREASED -0.6 % since study of: 2013 FRAX%s: The graph provided illustrates a 8.0 % chance for a major osteoporotic fx and a 0.9 % chance for the hips probability for fx in 10 years time. IMPRESSION: Osteopenia (T Score between -2.5 and -1). There is slightly increased risk of fracture and the patient may be considered for treatment. Re-Screen 2-5 years. NOTE: T-SCORE=SD OF THE YOUNG ADULT MEAN.
--- NOTE | 2021-11-07 09:36 | MM ---
Reason for Exam: Screening (asymptomatic). Last mammogram was performed 3 year(s) and 3 month(s) ago. Patient History: Menarche at age 12. First Full-Term at age 18. Left ovary removed at age 25. Right ovary removed at age 25. Hysterectomy at age 25. Postmenopausal. Currently using Estrogen, for 7 years. Benign Excisional Biopsy on the right side. Benign Excisional Biopsy on the right side. Risk Values: Kailyn 5 year model risk: 1.6%. NCI Lifetime model risk: 9.3%. Prior Study Comparison: 08/13/2010 Bilateral Screening Mammogram, [facility]. 03/08/2014 Bilateral Diagnostic Mammogram, [facility]. 08/13/2018 Bilateral Screening Mammogram, [facility]. Tissue Density: The breast tissue is almost entirely fat. Findings: Analyzed By CAD. There is no suspicious group of microcalcifications or new suspicious mass in either breast. Overall Assessment: Negative, BI-RAD 1 Management: Screening Mammogram of both breasts in 1 year. A clinical breast exam by your physician is recommended on an annual basis and results should be correlated with mammographic findings. Electronically signed and approved by: Carrillo Fields DO
== END | disposition home or self-care (01) ==
LOC: RADMAMWWP 11:18
PROVIDERS: ATTEND Family Medicine
DX: Z12.31 Encounter for screening mammogram for malignant neoplasm of breast (principal); M85.80 Other specified disorders of bone density and structure, unspecified site
CPT/HCPCS: 77063; 77067; 77080

== ENCOUNTER → 2022-07-14 | Outpatient (CLI) | payer MEDICAID ==
--- NOTE | 2022-07-14 11:04 | XR ---
EXAMINATION TYPE: XR forearm RT DATE OF EXAM: 07/14/2022 COMPARISON: NONE HISTORY: Pain Two views of the forearm demonstrate that the osseous structures appear to be intact and the joint sp aces appear to be preserved. There is no acute fracture or dislocation. Small olecranon spur. IMPRESSION: 1. No acute fracture or dislocation. 2. Small olecranon spur
== END | disposition home or self-care (01) ==
LOC: RADXRYALE 10:46
PROVIDERS: ATTEND Physician Assistant Medical
DX: M77.8 Other enthesopathies, not elsewhere classified (principal); M79.601 Pain in right arm

== ENCOUNTER → 2022-10-13 | Outpatient (CLI) | payer MEDICAID ==
--- NOTE | 2022-10-13 11:39 | CA ---
Stress Echo Report Rukhsana Pastrana Age: 56 Gender: F : 1965 Exam Date: 10/13/2022 10:04 Exam Location: [facility] Ht (in): 66 Wt (lb): 195 Ordering Physician: Wenceslao Uribe MD ([id number]) Referring Physician: NELLA,, Communications Manager: Lavell Renteria Technologist Procedure CPT: Indication: Chest Pain ICD-9 Codes: Rhythm: Patient History: Cardiac Medications: METFORMIN, PROTONIX Medications in past 24 hours: Contrast: Stress Results Protocol: Greg Total dose(mL): Exercise Duration (min:sec): 7:[address] Depression (mm): Angina Score: Ontiveros Score: METS: 9.3 Resting HR: 82 Resting BP: 119 / 58 Peak HR: 155 Peak BP: 174 / 100 Max Predicted HR: 162 96 % Max Predicted HR Target HR: 138 Double Product: [id number] Stress Summary: BP Response: Reason for Termination: Reached target heart rate or work-load Cardiac Symptoms: NO SYMPTOMS ECG Analysis Resting ECG: Stress ECG: Arrhythmia: Echo Analysis Resting Echo: Peak Echo Analysis: MEASUREMENTS (Male/Female) Normal Values CONCLUSIONS Baseline EKG revealed a normal sinus rhythm without significant ST-T changes. Patient walked on a standard Greg protocol for a total duration of 7 minutes 46 seconds and achieved a maximum heart rate of 155 bpm. Resting heart rate was 82 bpm. Patient did not have any significant symptoms but developed fatigue and shortness of breath. There were no EKG changes to indicate ischemia there was no arrhythmia. There was a lot of baseline artifact making it difficult to interpret but overall no evidence of ischemia by EKG criteria Baseline echo images revealed normal wall motion wall thickening of all segments. At peak exercise there was good augmentation of the front wall motion wall thickening of all segments suggesting that there is no evidence of any stress-induced ischemia on this study Final impression: By EKG criteria this is a negative stenosis with fair exercise capacity. There was a lot of artifact but no clearcut ischemic changes. Patient did not have angina there was no arrhythmia. Normal stress echocardiogram without evidence of ischemia Dr. Bernarda Max MD (Electronically Signed) Final Date: 13 October 2022 11:38
== END | disposition home or self-care (01) ==
LOC: RADNMMAIN 09:39
PROVIDERS: ATTEND Internal Medicine Interventional Cardiology
DX: R07.89 Other chest pain (principal); Z82.49 Family history of ischemic heart disease and other diseases of the circulatory system
CPT/HCPCS: 93351

== ENCOUNTER → 2023-07-21 | Outpatient (CLI) | payer MEDICAID ==
--- NOTE | 2023-07-21 15:20 | XR ---
EXAMINATION TYPE: XR shoulder complete LT DATE OF EXAM: 07/21/2023 3:15 PM CLINICAL INDICATION:Female, 57 years old with history of [id number] LT SHLD PAIN; [facility] COMPARISON: None TECHNIQUE: XR shoulder complete LT; examined in AP, internally rotated and scapular Y projections. FINDINGS: No evidence of acute osseous pathology, joint dislocation, or soft tissue swelling. The remaining po rtions of the visualized chest are unremarkable. Mild degeneration changes of the acromion and dista l clavicle. IMPRESSION: 1. No acute osseous pathology. 2. Mild shoulder osteoarthrosis.
== END | disposition home or self-care (01) ==
LOC: RADXRYALE 14:51
PROVIDERS: ATTEND Family Medicine
DX: M19.012 Primary osteoarthritis, left shoulder (principal)

== ENCOUNTER → 2023-07-29 | Outpatient (CLI) | payer MEDICAID ==
--- NOTE | 2023-07-30 15:15 | MM ---
Reason for Exam: Screening (asymptomatic). Last mammogram was performed 1 year(s) and 9 month(s) ago. Patient History: Menarche at age 12. First Full-Term at age 18. Left ovary removed at age 25. Right ovary removed at age 25. Hysterectomy at age 25. Postmenopausal. Patient used Estrogen for 7 years. Benign Excisional Biopsy on the right side. Benign Excisional Biopsy on the right side. Risk Values: Kailyn 5 year model risk: 1.7%. NCI Lifetime model risk: 9.1%. Prior Study Comparison: 03/08/2014 Bilateral Diagnostic Mammogram, [facility]. 08/13/2018 Bilateral Screening Mammogram, [facility]. 11/06/2021 Bilateral MG 3D screening mammo w/cad, [facility]. Tissue Density: There are scattered areas of fibroglandular density. Findings: Analyzed By CAD. There is no suspicious group of microcalcifications or new suspicious mass in either breast. Overall Assessment: Negative, BI-RAD 1 Management: Screening Mammogram of both breasts in 1 year. . Patient should continue monthly self-breast exams. A clinical breast exam by your physician is recommended on an annual basis. This exam should not preclude additional follow-up of suspicious palpable abnormalities. Note on Kailyn scores and lifetime risk: 1. A Kailyn score greater than 3% is considered moderate risk. If this is the case, consider specialist referral to assess eligibility for a risk reducing agent. 2. If overall lifetime risk for the development of breast cancer is 20% or higher, the patient may qualify for future screening with alternating mammogram and breast MRI. Electronically signed and approved by: Nayan Rosa M.D. Radiologis
== END | disposition home or self-care (01) ==
LOC: RADMAMWWP 09:36
PROVIDERS: ATTEND Family Medicine
DX: Z12.31 Encounter for screening mammogram for malignant neoplasm of breast (principal); M81.8 Other osteoporosis without current pathological fracture; Z78.0 Asymptomatic menopausal state
CPT/HCPCS: 77063; 77067